=== PATIENT | female | born 1980 | race Native Hawaiian/Other Pacific Islander ===

== ENCOUNTER 2018-03-07 09:10 | Emergency (ER) | payer OTHER ==
[2018-03-07 09:29] VITALS: BMI 28.1
--- NOTE | 2018-03-07 09:57 | OBHP ---
Datetime: 03/07/2018 09:50 IP Adm Impression: Term, intrauterine IP Admit Plan: Discharge home Admit Comment, IP Provider: dscussed early labor pattern, when to return. IP Fetus A Comments: status reassuring FHR - Baseline A Provider: 140 Membranes, Provider: Intact Contraction Comments Provider: Q5-7 IP Hx Assessment: The History has been Reviewed and is Current IP Chief Complaint: Uterine contractions NICHD Variability Prov Fetus A: Moderate 6-25bpm NICHD Accel Fetus A IP Provider: 10X10 FHR Category Provider Fetus A: Category I NICHD Decel Fetus A IP Provider: None Dilatation, Provider: 1 Effacement, Provider: 50 Station, Provider: -2
== END 2018-03-07 10:13 | disposition home or self-care (01) ==
LOC: H.EROB2 09:10 → H.L&D 09:38 → H.EROB2 10:13
DX: O26.93 Pregnancy related conditions, unspecified, third trimester (principal); R10.2 Pelvic and perineal pain; Z3A.39 39 weeks gestation of pregnancy

== ENCOUNTER 2018-03-07 15:06 | Inpatient (IN) | payer OTHER ==
[2018-03-07 09:29] VITALS: BMI 28.1
[2018-03-07 16:30] LABS: BASO % 0.3 % (0.0-2.0); HEMOGLOBIN 13.6 g/dL (12.0-16.0); LYMPH # 0.8 K/uL (1.0-4.3); MEAN CELL VOLUME 94.2 fl (81.0-99.0); MEAN CORPUSCULAR HEMOGLOBIN 31.8 pg (27.0-31.0); MEAN CORPUSCULAR HGB CONC 33.8 g/dL (33.0-37.0); MEAN PLATELET VOLUME 9.2 fl (7.2-11.7); MONO # 0.3 K/uL (0.0-0.8); MONO % 2.5 % (0.0-10.0); NEUT # 12.7 K/uL (1.8-7.0); NEUT % 91.2 % (50.0-75.0); PLATELET COUNT 232 K/uL (130-400); RBC 4.28 Mil/uL (3.80-5.20); RED CELL DISTRIBUTION WIDTH 13.4 % (11.5-14.5); WHITE BLOOD COUNT 13.9 K/uL (4.8-10.8)
--- NOTE | 2018-03-07 16:51 | OBADHP ---
Datetime: 03/07/2018 16:47 Admit Comment, IP Provider: admt n actve labor. antcipate Pelvic Type - PN: Adequate Extremities - PN: Normal Abdomen - PN: Normal Back - PN: Normal Breast - PN: Normal Lungs - PN: Normal Heart - PN: Normal Thyroid - PN: Normal Neurologic - PN: Normal HEENT - PN: Normal General - PN: Normal Weight - Estimated: 3200 Presentation-Admit: Vertex FHR - Baseline A Provider: 142 Membranes, Provider: Bulging Vital Signs Provider: Reviewed; Within Normal Limits IP Chief Complaint: Uterine contractions NICHD Variability Prov Fetus A: Moderate 6-25bpm NICHD Accel Fetus A IP Provider: 10X10 FHR Category Provider Fetus A: Category I NICHD Decel Fetus A IP Provider: None Dilatation, Provider: 6 Effacement, Provider: 90 Station, Provider: -2 Genitourinary Exam: Normal DTRs - PN: Normal EGA AdmitDate IP: 39.2 IP Adm Impression: Term, intrauterine ; Active labor IP Admit Plan: Admit to unit Datetime: 03/07/2018 09:50 IP Fetus A Comments: status reassuring Contraction Comments Provider: Q5-7 IP Hx Assessment: The History has been Reviewed and is Current
[2018-03-07 17:24] LABS: ANISOCYTOSIS SLIGHT; BANDS 5 % (0-2); LARGE PLATELETS PRESENT; LYMPHOCYTE 8 % (20-50); NEUTROPHIL 87 % (42-75); PLATELET ESTIMATE NORMAL (NORMAL); TOTAL CELLS COUNTED 100
[2018-03-07 18:09] LABS: MONOCYTE 0 % (0-10)
--- NOTE | 2018-03-07 18:54 | OBDS ---
DELIVERY PERSONNEL Nurse Showroom Sales Assistant Certified: DINORA Tipton Delivery Doctor: DINORA Tipton Shake Cutter: Roseann Winston RN MATERNAL INFORMATION Delivery Anesthesia: None Medications in Delivery: none Estimated Blood Loss (ml): 350 Placenta Cultured: No Maternal Complications: None Provider Comments: patient progressed well using the tub and nitrous oxide to of viable male in ulises over first degree perineal laceration. baby with spontaneous cry, apgars 9 and 9. placenta del ivered spontaneously and intact in the tub. mother moved to bed without incident. ebl [id number]. lacera tion repaired with one stitch 2-0 vicryl rapide suture. LABOR SUMMARY EDC: 03/12/2018 00:00 No. Babies in Womb: 1 Attempted: No Labor Anesthesia: None LABOR INFORMATION Reason for Induction: Not Applicable Onset of Labor: 03/07/2018 07:00 Complete Dilatation: 03/07/2018 17:00 Oxytocin: N/A Group B Beta Strep: Negative Antibiotics # of Doses: 0 Antibiotics Time of Last Dose: n/a Steroids Given: None Reason Steroids Not Administered: Not Applicable MEMBRANES Membranes Rupture Method: Spontaneous Rupture of Membranes: 03/07/2018 16:55 Length of Rupture (hrs): 0.63 Amniotic Fluid Color: Clear Amniotic Fluid Amount: Moderate Amniotic Fluid Odor: None STAGES OF LABOR Stage 1 hrs: 10 Stage 1 min: 0 Stage 2 hrs: 0 Stage 2 min: 33 Stage 3 hrs: 0 Stage 3 min: 5 Total Time in Labor hrs: 10 Total Time in Labor min: 38 VAGINAL DELIVERY Episiotomy: None Laceration Extension: First Degree Laceration Type: Perineal Laceration Repair: Yes Laceration Repair Note: small first degree perineal laceration rpaired with one stitch, 2-0 vicryl r apide Initial Vag Sponge Count: 5 Final Vag Sponge Count: 5 Initial Vag Sharps Count: 1 Final Vag Sharps Count: 1 Sponge Count Correct: Yes Sharps Count Correct: Yes BABY A INFORMATION Infant Delivery Date/Time: 03/07/2018 17:33 Method of Delivery: Vaginal Born in Route : No : N/A Forceps: N/A Vacuum Extraction: N/A Shoulder Dystocia : No SHOULDER DYSTOCIA BABY A Infant Delivery Date/Time: 03/07/2018 17:33 PRESENTATION/POSITION BABY A Presentation: Cephalic Cephalic Presentation: Vertex Breech Presentation: N/A PLACENTA INFORMATION BABY A Placenta Delivery Time : 03/07/2018 17:38 Placenta Method of Delivery: Spontaneous Placenta Status: Delivered SCORES BABY A Heart Rate 1 min: >100 bpm Resp Effort 1 min: Good Cry Reflex Irritability 1 min: Cough or Sneeze or Pulls Away Muscle Tone 1 min: Active Motion Color 1 min: Body [place], Extremities Blue Resuscitation Effort 1 min: N/A SCORE 1 MIN: 9 Heart Rate 5 min: >100 bpm Resp Effort 5 min: Good Cry Reflex Irritability 5 min: Cough or Sneeze or Pulls Away Muscle Tone 5 min: Active Motion Color 5 min: Body [place], Extremities Blue Resuscitation Effort 5 min: N/A SCORE 5 MIN: 9 INFANT INFORMATION BABY A Gestational Age at Delivery: 39.2 Gestational Status: Term Outcome : Liveborn Infant Condition : Stable Sex: Male IDENTIFICATION/MEDS BABY A ID Band Number: [id number] ID Band Location: Left Leg CORD INFORMATION BABY A No. Cord Vessels: 3 Nuchal Cord : N/A Cord Blood Taken: Yes
[2018-03-07] MEDS ORDERED: Benzocaine/Menthol SPRAY TOP PRN ×2 (19:08→20:19)
[2018-03-08 07:20] LABS: BASO % 0.2 % (0.0-2.0); EOS % 0.3 % (0.0-4.0); HEMOGLOBIN 11.4 g/dL (12.0-16.0); LYMPH # 1.7 K/uL (1.0-4.3); LYMPH % 11.9 % (20.0-40.0); MEAN CELL VOLUME 94.3 fl (81.0-99.0); MEAN CORPUSCULAR HEMOGLOBIN 32.7 pg (27.0-31.0); MEAN CORPUSCULAR HGB CONC 34.7 g/dL (33.0-37.0); MEAN PLATELET VOLUME 9.2 fl (7.2-11.7); MONO # 1.1 K/uL (0.0-0.8); MONO % 7.8 % (0.0-10.0); NEUT # 11.3 K/uL (1.8-7.0); NEUT % 79.8 % (50.0-75.0); RBC 3.5 Mil/uL (3.80-5.20); RED CELL DISTRIBUTION WIDTH 13.5 % (11.5-14.5); WHITE BLOOD COUNT 14.1 K/uL (4.8-10.8)
--- NOTE | 2018-03-08 11:56 | OBPPN ---
Datetime: 03/08/2018 11:51 PP Pain Prov: Within normal limits PP Breasts Prov: Normal PP Abdomen/Uterus Prov: Normal PP Lochia Prov: Normal PP Vulva/Perineum Prov: Normal PP Extremities Prov: Normal PP C/S Incision Prov: Not Applicable PP Progress Prov: Normal PP Impression Prov: Normal progression PP Plan Prov: Continue present management PP Progress Note Prov: Patient feels well. OOB without dizziness. able to void, tolerating diet. bleeding slowing down. still red. discussed discharge in am. patient given verbal instructions. w ill retun to our office in about 1 week and 6 weeks . IP PP Procedures: None Vital Signs Provider PP: Reviewed; Within Normal Limits
[2018-03-09 15:52] VITALS: BP 108/57; PULSE 73; RESP 18; TEMP 98.3; O2SAT 99
== END 2018-03-09 11:45 | disposition home or self-care (01) | DRG 807 ==
LOC: H.EROB2 15:06 → H.L&D 15:56 → H.OB/GYN 20:00
PROVIDERS: ADMIT Midwife; ATTEND Midwife
PROC: 10E0XZZ Delivery of Products of Conception, External Approach (ICD-10-PCS; principal; 2018-03-07)
PROC: 0HQ9XZZ Repair Perineum Skin, External Approach (ICD-10-PCS; 2018-03-07)
DX: O70.0 First degree perineal laceration during delivery (principal); Z37.0 Single live birth; Z3A.39 39 weeks gestation of pregnancy